=== PATIENT | female | born 1980 | race Caucasian/White ===

== ENCOUNTER 2019-09-14 12:44 | Emergency (ER) | payer SELFPAY ==
[~2019-09-14] VITALS: Ht 165.1 cm; Wt 54.5 kg
[2019-09-14 12:50] VITALS: BP 111/68; Ht 165.1 cm; Wt 54.5 kg
[2019-09-14] MEDS ORDERED: PAXIL10 MG PO (12:52)
[2019-09-14] MEDS ORDERED: MOBIC7.5 MG PO (13:27)
[2019-09-14] MEDS ORDERED: PAXIL40 MG PO (13:27)
== END 2019-09-14 14:07 | disposition home or self-care (01) ==
LOC: D.ER 12:44
DX: M25.551 Pain in right hip (principal); M16.11 Unilateral primary osteoarthritis, right hip